=== PATIENT | male | born 1990 | race Two or more races ===

== ENCOUNTER 2020-09-22 10:04 | Observation (INO) | payer OTHER ==
[~2020-09-22] VITALS: Ht 175.3 cm; Wt 93.0 kg
--- NOTE | 2020-09-22 10:51 | NUR ---
PT AMBULATORY TO ROOM 35 W/ MULTIPLE COVID SX STARTED OVER A WEEK AGO. PT STATES HE IS UNSURE IF HE HAS HAD CLOSE CONTACT W/ A CONFIRMED COVID CASE. PT DENIES ANY HX. PT RESTING ON GURNEY. NADN. MONITORS APPLIED. VSS. TEMP NOTED TO BE 103.1. TONIA ROMANO AWARE.
[2020-09-22] MEDS ORDERED: ACETAMINOPHEN 500 MG TABLET ONE (10:57)
[2020-09-22] MEDS ORDERED: IBUPROFEN 800 MG TABLET ONE (10:57)
[2020-09-22] MEDS ORDERED: ACETAMINOPHEN 500 MG TABLET PO ONE (11:00)
[2020-09-22] MEDS ORDERED: IBUPROFEN 800 MG TABLET PO ONE (11:00)
[2020-09-22 11:14] LABS: BASOPHILS % (AUTO) 0 % (0-1); EOSINOPHILS % (AUTO) 0 % (1-7); LYMPHOCYTES % (AUTO) 14 % (22-44); MEAN CORPUSCULAR HEMOGLOBIN 28.6 pg (27.5-34.5); MEAN CORPUSCULAR HGB CONC 34.5 g/dL (33.2-36.2); MEAN PLATELET VOLUME 7.9 fL (7.4-10.4); MONOCYTES % (AUTO) 8 % (2-9); NEUTROPHILS % (AUTO) 78 % (42-75); PLATELET COUNT 177 x10^3/uL (130-400); RED BLOOD COUNT 5.83 x10^6/uL (4.38-5.82); RED CELL DISTRIBUTION WIDTH 13.3 % (9.4-14.8)
--- NOTE | 2020-09-22 11:18 | NUR ---
PT RESTING ON GURNEY. NADN. CRUZ.
[2020-09-22 11:22] LABS: ALBUMIN 3.3 g/dL (3.4-5.0); ANION GAP 7 mmol/L (5-15); CALCIUM 8.2 mg/dL (8.5-10.1); CHLORIDE 103 mmol/L (98-107); CREATININE 1.11 mg/dL (0.7-1.3)
[2020-09-22 11:26] LABS: TROPONIN I < 0.015 ng/mL (0.000-0.045)
--- NOTE | 2020-09-22 12:13 | NUR ---
PT RESTING ON GURGIANFRANCO. NADN. VSS. TEMP DECREASING.
[2020-09-22] MEDS ORDERED: SODIUM CHLORIDE 0.9% 1,000ML IVBOLUS ONE (12:30)
[2020-09-22] MEDS ORDERED: CEFTRIAXONE 1,000 MG in DEXTROSE 5% 50 ML IVPB ONE (12:30)
--- NOTE | 2020-09-22 13:25 | NUR ---
REPORT GIVEN TO JEAN CLAUDE SILVERIO, RECEIVING RN. ALL QUESTIONS ANSWERED. AWAITING PT TRANSPORT.
--- NOTE | 2020-09-22 13:33 | NUR ---
PT RESTING ON MADALYN. INO. VSS. PT TO BE ADMITTED AND IS AGREEABLE. [facility] AT BEDSIDE.
[2020-09-22] MEDS ORDERED: POLYETHYLENE GLYCOL 17 GM PACKET PO PRN (14:00)
[2020-09-22] MEDS ORDERED: BISACODYL 10 MG SUPP PR PRN (14:00)
[2020-09-22] MEDS ORDERED: DOCUSATE 100 MG CAPSULE PO PRN (14:00)
[2020-09-22] MEDS ORDERED: ONDANSETRON ODT 4 MG PO PRN (14:00)
[2020-09-22] MEDS ORDERED: ONDANSETRON 2MG/ML, 2ML IVPush PRN (14:00)
[2020-09-22] MEDS ORDERED: KETOROLAC 30 MG/1 ML IV PRN (14:00)
[2020-09-22] MEDS ORDERED: ENALAPRILAT 1.25 MG/ML, 2ML IVPush PRN (14:00)
[2020-09-22] MEDS: CHOLECALCIFEROL 5,000u TAB PO SCH (14:39)
[2020-09-22] MEDS: ENOXAPARIN 40 MG/0.4 ML SQ SCH (14:39)
[2020-09-22] MEDS: ZINC SULFATE 220 MG CAPSULE PO SCH (14:39)
[2020-09-22] MEDS: SODIUM CHLORIDE 0.9% 1,000 ML IV SCH (14:39)
[2020-09-22] MEDS: THIAMINE 100MG TABLET PO SCH (14:39)
[2020-09-22 14:53] VITALS: BP 116/70
[2020-09-22] MEDS: ACETAMINOPHEN 325 MG TABLET PO PRN (16:23)
[2020-09-22] MEDS: IBUPROFEN 600 MG TABLET PO PRN (18:35)
[2020-09-22 21:15] VITALS: BP 122/73
[2020-09-22] MEDS: ASCORBIC ACID 500 MG TABLET PO SCH (21:17)
[2020-09-23] MEDS: SODIUM CHLORIDE 0.9% 1,000 ML IV SCH ×2 (01:05→12:09)
[2020-09-23 01:08] VITALS: BP 113/69
[2020-09-23 06:07] LABS: BASOPHILS % (AUTO) 0 % (0-1); EOSINOPHILS % (AUTO) 0 % (1-7); LYMPHOCYTES % (AUTO) 8 % (22-44); MEAN CORPUSCULAR HEMOGLOBIN 28.6 pg (27.5-34.5); MEAN CORPUSCULAR HGB CONC 34.7 g/dL (33.2-36.2); MEAN PLATELET VOLUME 7.8 fL (7.4-10.4); MONOCYTES % (AUTO) 5 % (2-9); NEUTROPHILS % (AUTO) 87 % (42-75); PLATELET COUNT 161 x10^3/uL (130-400); RED BLOOD COUNT 5.31 x10^6/uL (4.38-5.82); RED CELL DISTRIBUTION WIDTH 13.4 % (9.4-14.8)
[2020-09-23 06:20] LABS: ANION GAP 9 mmol/L (5-15); CALCIUM 7.9 mg/dL (8.5-10.1); CHLORIDE 106 mmol/L (98-107)
[2020-09-23 06:22] LABS: CREATININE 0.94 mg/dL (0.7-1.3)
[2020-09-23 08:43] VITALS: BP 127/70
[2020-09-23] MEDS: ACETAMINOPHEN 325 MG TABLET PO PRN (08:45)
[2020-09-23] MEDS: THIAMINE 100MG TABLET PO SCH (08:45)
[2020-09-23] MEDS: CHOLECALCIFEROL 5,000u TAB PO SCH (08:45)
[2020-09-23] MEDS: ZINC SULFATE 220 MG CAPSULE PO SCH (08:45)
[2020-09-23] MEDS: ASCORBIC ACID 500 MG TABLET PO SCH (08:45)
[2020-09-23] MEDS ORDERED: ZINC220C8 PO (09:51)
[2020-09-23] MEDS ORDERED: ASCO500T9 PO (09:51)
[2020-09-23] MEDS ORDERED: THIA100T67 PO (09:51)
[2020-09-23] MEDS ORDERED: GUAI12009 PEG (09:51)
[2020-09-23] MEDS ORDERED: IBUP-1223 PO (09:51)
[2020-09-23] MEDS ORDERED: CHOL500045 PO (09:51)
[2020-09-23] MEDS: IBUPROFEN 600 MG TABLET PO PRN (12:09)
[2020-09-23 12:21] VITALS: BP 115/73
[2020-09-23] MEDS: ENOXAPARIN 40 MG/0.4 ML SQ SCH (14:03)
== END 2020-09-23 14:46 | disposition home or self-care (01) ==
LOC: ED 11:43 → 3N 12:39 → INTOOBSV 12:39
PROVIDERS: ADMIT Family Medicine; ATTEND Family Medicine
DX: U07.1 COVID-19 (principal); J12.82 Pneumonia due to coronavirus disease 2019; J18.0 Bronchopneumonia, unspecified organism; I10 Essential (primary) hypertension; Z79.899 Other long term (current) drug therapy
CPT/HCPCS: 36415; 71045; 80048; 82040; 83605; 84145; 84484; 85025; 87040; 93005; 96361; 96365; 96372; 96375; 99285; G0378; J0696; J1650; J1885; J7030; U0003; U0005